=== PATIENT | female | born 1980 | race Caucasian/White ===

== ENCOUNTER 2017-08-03 07:21 | Emergency (ER) | payer MEDICAID ==
[~2017-08-03] VITALS: Ht 165.1 cm; Wt 77.3 kg
[2017-08-03 08:15] VITALS: BP 134/78
[2017-08-03] MEDS ORDERED: HYDROCODONE/ACETAMINOPHEN 5-325 MG TABLET PO ONE (08:45)
[2017-08-03] MEDS ORDERED: METHOCARBAMOL 500 MG TABLET PO ONE (08:45)
== END 2017-08-03 09:05 | disposition home or self-care (01) ==
LOC: EMS 07:23
DX: S16.1XXA Strain of muscle, fascia and tendon at neck level, initial encounter (principal); X58.XXXA Exposure to other specified factors, initial encounter; Y93.89 Activity, other specified; Y92.89 Other specified places as the place of occurrence of the external cause; Y99.8 Other external cause status
CPT/HCPCS: 99283

== ENCOUNTER 2018-05-14 13:04 | Emergency (ER) | payer MEDICAID ==
[~2018-05-14] VITALS: Ht 162.6 cm; Wt 77.3 kg
[2018-05-14] MEDS ORDERED: ACETAMINOPHEN 500 MG TABLET PO ONE (14:45)
[2018-05-14] MEDS ORDERED: DICLOXACILLIN SODIUM 250 MG CAPSULE PO ONE (14:45)
[2018-05-14] MEDS ORDERED: FLUCONAZOLE 200 MG TABLET PO ONE (14:45)
[2018-05-14] MEDS ORDERED: CEPHALEXIN MONOHYDRATE 500 MG CAPSULE PO ONE (15:00)
[2018-05-14] MEDS ORDERED: DEXAMETHASONE 4 MG TABLET PO ONE (15:00)
[2018-05-14 15:24] LABS: APPEARANCE,URINE CLEAR (CLEAR); BILIRUBIN,URINE NEGATIVE (NEGATIVE); GLUCOSE, URINE (UA) NEGATIVE (NEGATIVE); KETONES,URINE NEGATIVE (NEGATIVE); LEUKOCYTE ESTERASE ,URINE TRACE (NEGATIVE); NITRATE,URINE NEGATIVE (NEGATIVE); OCCULT BLOOD,URINE NEGATIVE (NEGATIVE); PROTEIN,URINE NEGATIVE (NEGATIVE)
[2018-05-14 15:34] LABS: BASOPHILS % (AUTO) 0.5 % (0.0-2.0); EOSINOPHILS % (AUTO) 0.1 % (1.0-6.0); HEMATOCRIT 38.8 % (36-46); HEMOGLOBIN 13.4 g/dL (12.0-16.0); LYMPHOCYTES % (AUTO) 13.3 % (22.0-44.0); MEAN CORPUSCULAR HEMOGLOBIN 31.9 pg (26.0-34.0); MEAN CORPUSCULAR HGB CONC 34.6 G/dL (31.0-37.0); MEAN CORPUSCULAR VOLUME 92 fL (80-100); MONOCYTES % (AUTO) 6.5 % (2.0-9.0); NEUTROPHILS # (AUTO) 11.8 K/uL (1.8-7.7); NEUTROPHILS % (AUTO) 79.6 % (40.0-70.0); PLATELET COUNT (AUTO) 273 K/uL (150-450); RED BLOOD CELL COUNT(AUTO) 4.21 MIL/uL (4.00-5.20); RED CELL DISTRIBUTION WIDTH 13.2 % (11.5-14.5)
[2018-05-14 15:38] LABS: ANION GAP 8 mmol/L (8-16); CALCIUM, TOTAL 8.4 mg/dL (8.8-10.5); CARBON DIOXIDE 28 mmol/L (22-29); CHLORIDE 102 mmol/L (98-107); CREATININE 0.54 mg/dL (0.60-1.30); GLOMERULAR FILTR. RATE CALC > 60 mL/min (>60); GLUCOSE,RANDOM 88 mg/dL (70-110); POTASSIUM 3.5 mmol/L (3.5-5.1); SODIUM SERUM 138 mmol/L (136-145); UREA NITROGEN, BLOOD 8 mg/dL (7-18)
[2018-05-14 15:44] LABS: BACTERIA,URINE None Seen /HPF (None Seen); RBC,URINE None Seen /HPF (0-2); SQUAMOUS EPITHELIAL CELL,UR Few /LPF (None Seen)
[2018-05-14 16:24] VITALS: BP 116/77
== END 2018-05-14 16:43 | disposition home or self-care (01) ==
LOC: EMS 13:05
DX: N61.0 Mastitis without abscess (principal); N39.0 Urinary tract infection, site not specified; B37.3 Candidiasis of vulva and vagina
CPT/HCPCS: 36415; 80048; 81001; 81025; 85025; 99285; J8540

== ENCOUNTER 2018-10-05 12:12 | Emergency (ER) | payer MEDICAID ==
[~2018-10-05] VITALS: Ht 152.4 cm; Wt 77.3 kg
[2018-10-05] MEDS ORDERED: ACYCLOVIR 200 MG CAPSULE PO ONE (13:45)
[2018-10-05] MEDS ORDERED: LIDOCAINE 5% TRANSDERMAL PATCH TD ONE (13:45)
[2018-10-05 14:44] VITALS: BP 127/83
== END 2018-10-05 14:47 | disposition home or self-care (01) ==
LOC: EMS 12:13
DX: B02.9 Zoster without complications (principal); M54.6 Pain in thoracic spine

== ENCOUNTER 2019-03-28 20:10 | Emergency (ER) | payer MEDICAID ==
[~2019-03-28] VITALS: Ht 162.6 cm; Wt 77.3 kg
[2019-03-28 20:36] VITALS: BP 143/88
[2019-03-28] MEDS ORDERED: OXYC-38 PO (20:50)
[2019-03-28] MEDS ORDERED: KETOROLAC TROMETHAMINE 30 MG/ML VIAL IM ONE (21:30)
[2019-03-28] MEDS ORDERED: DIAZEPAM 5 MG/ML 2 ML SYRINGE IM ONE (21:30)
== END 2019-03-28 21:57 | disposition home or self-care (01) ==
LOC: EMS 20:10
DX: S13.4XXA Sprain of ligaments of cervical spine, initial encounter (principal); M79.672 Pain in left foot; V49.9XXA Car occupant (driver) (passenger) injured in unspecified traffic accident, initial encounter; Y93.89 Activity, other specified; Y92.89 Other specified places as the place of occurrence of the external cause; Y99.8 Other external cause status
CPT/HCPCS: 96372; 99283; J1885 ×2